=== PATIENT | male | born 1975 | race Caucasian/White ===

== ENCOUNTER 2018-09-29 20:07 | Inpatient (IN) | payer OTHER ==
[2018-09-29 21:01] LABS: Hemoglobin 14.6 gm/dl (11.8-15.2); Mean Corpuscular HGB Conc 33 % (32-34); Mean Corpuscular Hemoglobin 26 pg (28-32); Mean Corpuscular Volume 79 fl (84-94); Red Blood Count 5.54 M/mm3 (3.65-5.03); Red Cell Distribution Width 13.5 % (13.2-15.2)
[2018-09-29 21:02] LABS: Platelet Count 98 K/mm3 (140-440)
--- NOTE | 2018-09-29 21:48 | Emergency Department Report ---
ED Seizure HPI - General Chief Complaint: Seizure Stated Complaint: POSSIBE SEIZURE Time Seen by Provider: 09/29/18 20:55 Source: patient, family, EMS Mode of arrival: Stretcher Limitations: No Limitations - History of Present Illness Initial Comments: Patient is a 43-year-old male presents to emergency room with new onset seizure. Patient has no history of seizure. Patient states that he was in the kitchen cooking dinner and all of a sudden was on the floor. Family at bedside. Family witnessed event. Her patient was standing up and fell to the ground and went into seizure-like activity and hit his head on the ground. Patient had a postictal stage. Patient denies alcohol use. Patient denies drug use. Patient is answering questions appropriately. Patient states he doesn't remember having a seizure. Patient denies any chest pain or shortness of breath. Patient denies any blurry vision or headache or pain in the head. MD Complaint: seizure, loss of consciousness -: Sudden Description of Episode: loss of consciousness, tonic-clonic movement Witnessed:: Yes Trauma: Yes (hit head,. ) Seizure History: none Place: home Possible Precipitating Event: none Associated Symptoms: tongue injury. denies: chest pain, confusion, cough, diaphoresis, fever/chills, loss of appetite, malaise, rash, shortness of breath, syncope, weakness, shoulder dislocation Treatments Prior to Arrival: none - Related Data Home Medications Medication Instructions Recorded Confirmed Last Taken No Known Home Medications [No 09/30/18 09/30/18 Unknown Reported Home Medications] Allergies Allergy/AdvReac Type Severity Reaction Status Date / Time No Known Allergies Allergy Unverified 09/29/18 20:23 ED Review of Systems ROS: Stated complaint: POSSIBE SEIZURE Other details as noted in HPI Constitutional: denies: chills, fever Eyes: denies: eye pain, eye discharge, vision change ENT: denies: ear pain, throat pain Respiratory: denies: cough, shortness of breath, wheezing Cardiovascular: denies: chest pain, palpitations Endocrine: no symptoms reported Gastrointestinal: denies: abdominal pain, nausea, diarrhea Genitourinary: denies: urgency, dysuria Musculoskeletal: denies: back pain, joint swelling, arthralgia Skin: denies: rash, lesions Neurological: denies: headache, weakness, paresthesias Psychiatric: denies: anxiety, depression Hematological/Lymphatic: denies: easy bleeding, easy bruising ED Past Medical Hx - Past Medical History Previous Medical History?: No - Surgical History Past Surgical History?: Yes Additional Surgical History: Left and Right arm surgery - Family History Family history: no significant - Social History Smoking Status: Never Smoker Substance Use Type: Alcohol - Medications Home Medications: Home Medications Medication Instructions Recorded Confirmed Last Taken Type No Known Home Medications [No 09/30/18 09/30/18 Unknown History Reported Home Medications] ED Physical Exam - General Limitations: No Limitations General appearance: alert, in no apparent distress - Head Head exam: Present: atraumatic, normocephalic - Eye Eye exam: Present: normal appearance - ENT ENT exam: Present: mucous membranes moist, other ( tongue lac. bleeding controlled. site closed. ) - Neck Neck exam: Present: normal inspection - Respiratory Respiratory exam: Present: normal lung sounds bilaterally. Absent: respiratory distress - Cardiovascular Cardiovascular Exam: Present: regular rate, normal rhythm. Absent: systolic murmur, diastolic murmur, rubs, gallop - GI/Abdominal GI/Abdominal exam: Present: soft, normal bowel sounds - Rectal Rectal exam: Present: deferred - Extremities Exam Extremities exam: Present: normal inspection - Back Exam Back exam: Present: normal inspection - Neurological Exam Neurological exam: Present: alert, oriented X3 - Psychiatric Psychiatric exam: Present: normal affect, normal mood - Skin Skin exam: Present: warm, dry, intact, normal color. Absent: rash ED Course Vital Signs 09/29/18 09/29/18 09/30/18 20:35 20:37 00:51 Temperature 97.6 F Pulse Rate 122 H 102 H Respiratory 18 18 18 Rate Blood Pressure 166/101 152/96 [Right] O2 Sat by Pulse 99 Oximetry - Reevaluation(s) Reevaluation #1: Initial evaluation done. We'll order a head CT and possibly admit due to new onset seizures. 09/29/18 21:00 Discussed all results with patient. Patient to be admitted to the hospitalist service. Patient agrees with plan of care and admission. While I was explaining the patient's results, the patient had an absence seizure, where the patient stared off into space and was unresponsive. After about 30 or 40 seconds the patient returns normal 09/29/18 23:37 Discussed plan of care again with patient and family. Patient agreed to plan of care and admission. 09/30/18 00:54 - Consultations Consultation #1: Hospitalist consultation 09/30/18 00:[address] Yu. Hospitalist was consulted for admission. Hospitalist to admit patient and assume care. 09/30/18 00:53 ED Medical Decision Making - Lab Data Result diagrams: 09/29/18 20:36 09/29/18 20:36 - EKG Data -: EKG Interpreted by Me EKG shows normal: sinus rhythm, axis, intervals, QRS complexes, ST-T waves Rate: tachycardia - Radiology Data Radiology results: report reviewed FINAL REPORT EXAM: CT HEAD/BRAIN WO CON HISTORY: sz TECHNIQUE: CT was performed from the foramen magnum through the vertex in the axial plane without the use of intravenous contrast. PRIORS: None. FINDINGS: The persaud/white matter attenuation pattern is normal. There is no mass lesion or mass effect. There are no abnormal extra-axial fluid collections. There is no evidence of acute intracranial hemorrhage or infarct. The ventricles are of normal size and configuration. The skull and orbits are unremarkable. There is patchy mucosal thickening in the bilateral ethmoid air cells. IMPRESSION: Normal CT of the head. Transcribed By: KRISTINE Dictated By: PARAG STALLINGS MD Electronically Authenticated By: PARAG STALLINGS MD Signed Date/Time: 09/29/18 2309 - Medical Decision Making Patient is a 43-year-old male presents emergency room with complaints of new onset seizure. Patient does not have a history of seizures. Patient head CT is negative. Labs essentially unremarkable except for hyponatremia. Patient adm itted to the hospitalist service for further evaluation treatment. - Differential Diagnosis new-onset seizure. Seizure activity. Electrolyte imbalance. Critical Care Time: Yes Critical care attestation.: If time is entered above; I have spent that time in minutes in the direct care of this critically ill patient, excluding procedure time. Critical Care Time: 35 minutes. ED Disposition Clinical Impression: New onset seizure, Hyponatremia, Elevated CK Tongue laceration Qualifiers: Encounter type: initial encounter Qualified Code(s): S01.512A - Laceration without foreign body of oral cavity, initial encounter Disposition: 09 OP ADMIT IP TO THIS HOSP Is pt being admited?: Yes Does the pt Need Aspirin: No Condition: Critical Time of Disposition: 00:53
[2018-09-29 21:55] LABS: BUN/Creatinine Ratio 7; Blood Urea Nitrogen 8 mg/dL (9-20); Hemolysis Index 28
--- NOTE | 2018-09-29 23:09 | Cat Scan Report ---
FINAL REPORT EXAM: CT HEAD/BRAIN WO CON HISTORY: sz TECHNIQUE: CT was performed from the foramen magnum through the vertex in the axial plane without th e use of intravenous contrast. PRIORS: None. FINDINGS: The persaud/white matter attenuation pattern is normal. There is no mass lesion or mass effect. There ar e no abnormal extra-axial fluid collections. There is no evidence of acute intracranial hemorrhage or infarct. The ventricles are of normal size and configuration. The skull and orbits are unremarkable . There is patchy mucosal thickening in the bilateral ethmoid air cells. IMPRESSION: Normal CT of the head.
[2018-09-29] MEDS ORDERED: NACL 0.9% 1000 ML 1,000 ML IV ONE (23:38)
[2018-09-30 00:32] LABS: Creatine Kinase MB 2.8 ng/mL (0.0-4.0)
[2018-09-30 01:59] LABS: Bilirubin,Urine NEG (Negative); Blood,Urine SM (Negative); Color,Urine Amber (Yellow); Hyaline Casts,Urine 42 /LPF; Mucus,Urine 3+ /HPF
[2018-09-30 02:00] LABS: Protein,Urine >500 mg/dL (Negative)
[2018-09-30 02:03] LABS: Amphetamine Screen,Urine PRESUMPTIVE NEGATIVE; Benzodiazepines Screen,Urine PRESUMPTIVE NEGATIVE; Cannabinoid Screen,Urine PRESUMPTIVE NEGATIVE; Cocaine Screen,Urine PRESUMPTIVE NEGATIVE; Methadone Screen,Urine PRESUMPTIVE NEGATIVE; Opiate Screen,Urine PRESUMPTIVE NEGATIVE
[2018-09-30] MEDS ORDERED: TYLENOL PO PRN (02:04)
[2018-09-30] MEDS ORDERED: ZOFRAN IV PRN (02:04)
[2018-09-30] MEDS ORDERED: SODIUM CHLORIDE FLUSH SYRINGE 10 ML IV PRN (02:04)
[2018-09-30] MEDS ORDERED: NORCO 5/325 PO PRN (02:04)
[2018-09-30] MEDS ORDERED: ATIVAN IV PRN (02:07)
--- NOTE | 2018-09-30 02:27 | History and Physical Report ---
History of Present Illness Date of examination: 09/30/18 Date of admission: 09/30/18 Chief complaint: Seizure History of present illness: Patient is a 43-year-old -Italian male with no known past medical history who was brought to the ED via EMS on account of seizure activity. History was obtained from the patient and the girlfriend who was at the bedside. He stated that she found the patient on the kitchen floor twitching all over. After the seizure he was confused for about 10 minutes. He had associated tongue bite but no urinary or fecal incontinence. Patient stated that for the past few days, he had been vomiting with associated lightheadedness. He denies abdominal pain, constipation, diarrhea, dysuria or frequency. No chest pain, shortness of breath, palpitation, cough, sore throat, runny nose or congestion, fever, chills, leg swelling, orthopnea or PND. No prior history of presenting complaint. He denies heavy alcohol or illicit drug use. Past History Past Medical History: No medical history Past Surgical History: Other (both arm surgery) Social history: other (he admits to occasional alcohol use but denies tobacco or illicit drug use) Family history: other (no family history of epilepsy or seizure disorder) Medications and Allergies Allergies Allergy/AdvReac Type Severity Reaction Status Date / Time No Known Allergies Allergy Unverified 09/29/18 20:23 Home Medications Medication Instructions Recorded Confirmed Last Taken Type No Known Home Medications [No 09/30/18 09/30/18 Unknown History Reported Home Medications] Active Meds: Active Medications Acetaminophen (Tylenol) 650 mg PO Q4H PRN PRN Reason: Pain MILD(1-3)/Fever >100.5/MANUEL Acetaminophen/Hydrocodone Bitart ([place] 5/325) 1 each PO Q6H PRN PRN Reason: Pain, Moderate (4-6) Sodium Chloride (Nacl 0.9% 1000 Ml) 1,000 mls @ 125 mls/hr IV DIRECT CARROLL Lorazepam (Ativan) 2 mg IV Q4H PRN PRN Reason: Seizures Ondansetron HCl (Zofran) 4 mg IV Q8H PRN PRN Reason: Nausea And Vomiting Sodium Chloride (Sodium Chloride Flush Syringe 10 Ml) 10 ml IV BID CARROLL Sodium Chloride (Sodium Chloride Flush Syringe 10 Ml) 10 ml IV PRN PRN PRN Reason: LINE FLUSH Review of Systems All systems: negative (except as documented in the HPI, all other systems were reviewed and negative) Exam - Constitutional Vitals: Temp Pulse Resp BP Pulse Ox 97.6 F 102 H 18 152/96 99 09/29/18 20:37 09/30/18 00:51 09/30/18 00:51 09/30/18 00:51 09/30/18 00:51 General appearance: Present: no acute distress, obese - EENT Eyes: Present: PERRL, EOM intact ENT: hearing intact, clear oral mucosa - Neck Neck: Present: supple, normal ROM - Respiratory Respiratory effort: normal Respiratory: bilateral: CTA - Cardiovascular Rhythm: other (tachycardia with regular rhythm) Heart Sounds: Present: S1 & S2. Absent: rub, click - Extremities Extremities: pulses symmetrical, No edema Peripheral Pulses: within normal limits - Abdominal General gastrointestinal: Present: soft, non-tender, non-distended, normal bowel sounds Male genitourinary: Present: deferred - Integumentary Integumentary: Present: clear, warm, dry - Musculoskeletal Musculoskeletal: gait normal, strength equal bilaterally - Psychiatric Psychiatric: appropriate mood/affect, intact judgment & insight - Neurologic Neurologic: CNII-XII intact, moves all extremities Results - Labs CBC & Chem 7: 09/29/18 20:36 09/29/18 20:36 Labs: Laboratory Last Values WBC 5.6 K/mm3 (4.5-11.0) 09/29/18 20:36 RBC 5.54 M/mm3 (3.65-5.03) H 09/29/18 20:36 Hgb 14.6 gm/dl (11.8-15.2) 09/29/18 20:36 Hct 44.0 % (35.5-45.6) 09/29/18 20:36 MCV 79 fl (84-94) L 09/29/18 20:36 MCH 26 pg (28-32) L 09/29/18 20:36 MCHC 33 % (32-34) 09/29/18 20:36 RDW 13.5 % (13.2-15.2) 09/29/18 20:36 Plt Count 98 K/mm3 (140-440) L 09/29/18 20:36 Sodium 129 mmol/L (137-145) L 09/29/18 20:36 Potassium 3.8 mmol/L (3.6-5.0) 09/29/18 20:36 Chloride 91.4 mmol/L (98-107) L 09/29/18 20:36 Carbon Dioxide 19 mmol/L (22-30) L 09/29/18 20:36 Anion Gap 22 mmol/L 09/29/18 20:36 BUN 8 mg/dL (9-20) L 09/29/18 20:36 Creatinine 1.2 mg/dL (0.8-1.5) 09/29/18 20:36 Estimated GFR > 60 ml/min 09/29/18 20:36 BUN/Creatinine Ratio 7 % 09/29/18 20:36 Glucose 198 mg/dL (75-100) H 09/29/18 20:36 Calcium 9.0 mg/dL (8.4-10.2) 09/29/18 20:36 Total Creatine Kinase 368 units/L (55-170) H 09/29/18 Unknown CK-MB (CK-2) 2.8 ng/mL (0.0-4.0) 09/29/18 Unknown CK-MB (CK-2) Rel Index 0.7 (0-4) 09/29/18 Unknown Troponin T < 0.010 ng/mL (0.00-0.029) 09/29/18 Unknown Urine Color Kristan (Yellow) 09/30/18 01:43 Urine Turbidity Slightly-cloudy (Clear) 09/30/18 01:43 Urine pH 5.0 (5.0-7.0) 09/30/18 01:43 Ur Specific [place] 1.023 (1.003-1.030) 09/30/18 01:43 Urine Protein >500 mg/dL (Negative) 09/30/18 01:43 Urine Glucose (UA) 50 mg/dL (Negative) 09/30/18 01:43 Urine Ketones Tr mg/dL (Negative) 09/30/18 01:43 Urine Blood Sm (Negative) 09/30/18 01:43 Urine Nitrite Neg (Negative) 09/30/18 01:43 Urine Bilirubin Neg (Negative) 09/30/18 01:43 Urine Urobilinogen 4.0 mg/dL (<2.0) 09/30/18 01:43 Ur Leukocyte Esterase Neg (Negative) 09/30/18 01:43 Urine WBC (Auto) 4.0 /HPF (0.0-6.0) 09/30/18 01:43 Urine RBC (Auto) 5.0 /HPF (0.0-6.0) 09/30/18 01:43 U Epithel Cells (Auto) < 1.0 /HPF (0-13.0) 09/30/18 01:43 Hyaline Casts 42 /LPF 09/30/18 01:43 Urine Mucus 3+ /HPF 09/30/18 01:43 Urine Opiates Screen Presumptive negative 09/30/18 01:43 Urine Methadone Screen Presumptive negative 09/30/18 01:43 Ur Barbiturates Screen Presumptive negative 09/30/18 01:43 Ur Phencyclidine Scrn Presumptive negative 09/30/18 01:43 Ur Amphetamines Screen Presumptive negative 09/30/18 01:43 U Benzodiazepines Scrn Presumptive negative 09/30/18 01:43 Urine Cocaine Screen Presumptive negative 09/30/18 01:43 U Marijuana (THC) Screen Presumptive negative 09/30/18 01:43 Drugs of Abuse Note Disclamer 09/30/18 01:43 Assessment and Plan Assessment and plan: New onset seizure -Probably secondary to the hyponatremia -Seizure precautions -Head CT scan negative, drug screen negative -We'll check magnesium and phosphorus levels Hyponatremia -On IV fluid, will monitor sodium level Hyperglycemia -We'll check hemoglobin A1c level Metabolic acidosis -We'll hydrate patient and monitor bicarbonate level Elevated BP without prior diagnosis of hypertension -When necessary hydralazine DVT prophylaxis with SCD Disposition: Patient will be placed in inpatient status with plan for discharge in 2-3 days is clinically stable
[2018-09-30 03:01] LABS: Alanine Aminotransferase 29 units/L (7-56); Albumin 3.8 g/dL (3.9-5); BUN/Creatinine Ratio 8; Blood Urea Nitrogen 7 mg/dL (9-20); Calcium 8.7 mg/dL (8.4-10.2); Hemolysis Index 3
[2018-09-30 04:42] LABS: Chol/HDL Ratio 3.82 %
[2018-09-30] MEDS: NACL 0.9% 1000 ML 1,000 ML IV SCH ×2 (04:47→23:24)
[2018-09-30] MEDS ORDERED: K-DUR PO ONE (05:15)
--- NOTE | 2018-09-30 11:22 | Event Note ---
Date: 09/30/18 Patient seen and examined medical records reviewed Admitted this morning with new onset seizures hypokalemia hypophosphatemia On seizure precautions , consult neurology Patient is advised not to drive for 6 months Patient feels better now with complaints Denies headache or dizziness Vital signs noted physical examination unremarkable Assessment and plan; --New onset seizure; Probably due to hyponatremia Seizure precautions, neurology consult Do not drive for [address] scan negative, drug screen negative --Hypokalemia replace per protocol; --Hyponatremia; mild improvement Continue IV fluid, will monitor sodium level --Hypophosphatemia; Neutra-Phos, closely monitor --Hyperglycemia We'll check hemoglobin A1c level, Accu-Chek sliding scale coverage --Metabolic acidosis Mild improvement , continue IV fluids --Hypertension; moderate control When necessary hydralazine DVT prophylaxis with SCD Disposition: Follow neuro consult, EEG Plan of care reviewed with the patient and his
--- NOTE | 2018-09-30 16:26 | Electroencephalogram Report ---
Electroencephalogram EEG Date of exam: 09/30/18 History: Single first GTC seizure preceded by brief lightheadedness, with tongue biting but no incontinence. Phosphate was 2(mildly low) with sodium 128 (mildly low). Description: EEG preliminary findings: This 23 channel digital EEG is performed with the 10/20 international montage in this 21 minute recording. One channel represents EKG showing tachycardia. There is 9 Hz alpha activity in the posterior leads and some anterior beta activity. There is shifting slowing with drowsiness but no sleep is recorded. No epileptiform activity was seen. Interpretation: EEG preliminary reading: normal wake/drowsy EEG except for tachycardia. This EEG does not exclude epilepsy of partial onset. Up to 4 EEGs over several months may be needed to capture interictal epileptiform activity.
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
[2018-09-30] MEDS: SODIUM CHLORIDE FLUSH SYRINGE 10 ML IV SCH ×2 (17:25→22:40)
[2018-09-30 17:50] LABS: BUN/Creatinine Ratio 7; Blood Urea Nitrogen 6 mg/dL (9-20); Calcium 8.2 mg/dL (8.4-10.2); Hemolysis Index 21
[2018-10-01 06:19] LABS: BUN/Creatinine Ratio 7; Blood Urea Nitrogen 5 mg/dL (9-20); Calcium 8.6 mg/dL (8.4-10.2); Hemolysis Index 11
[2018-10-01] MEDS: NACL 0.9% 1000 ML 1,000 ML IV SCH (07:05)
[2018-10-01] MEDS ORDERED: APRESOLINE IV ONE (12:04)
[2018-10-01] MEDS ORDERED: K-DUR PO ONE (13:12)
[2018-10-01] MEDS ORDERED: APRESOLINE PO SCH (14:00)
[2018-10-01] MEDS: APRESOLINE IV PRN ×2 (17:33→23:48)
--- NOTE | 2018-10-01 19:24 | Progress Note ---
Assessment and Plan Assessment and plan: Assessment and plan; --Malignant hypertension; continue current antihypertensives When necessary medications --New onset seizure; no new episodes since admission Probably due to hyponatremia Seizure precautions, neurology evaluated the patient No indication for anti-epileptics at this point Do not drive for 6 months, EEG negative Head CT scan negative, drug screen negative Patient will follow up with outpatient neurologist for further evaluation --Hypokalemia; corrected --Hyponatremia; mild improvement Continue IV fluid, will monitor sodium level --Hypophosphatemia; Neutra-Phos, closely monitor --Hyperglycemia We'll check hemoglobin A1c level, Accu-Chek sliding scale coverage --Metabolic acidosis Mild improvement , continue IV fluids --Hypertension; moderate control When necessary hydralazine DVT prophylaxis with SCD Disposition: Follow neuro consult, EEG Plan of care reviewed with the patient and his History Interval history: Patient seen and examined medical records reviewed No new events reported by the nursing New seizure episodes Hospitalist Physical - Constitutional Vitals: Temp Pulse Resp BP Pulse Ox 99.6 F 105 H 20 176/112 95 10/01/18 17:20 10/01/18 05:02 10/01/18 17:20 10/01/18 17:20 10/01/18 05:02 General appearance: Present: no acute distress, well-nourished, obese - EENT Eyes: Present: PERRL, EOM intact - Neck Neck: Present: supple, normal ROM - Respiratory Respiratory effort: normal Respiratory: bilateral: diminished, negative: rales, rhonchi, wheezing - Cardiovascular Rhythm: regular Heart Sounds: Present: S1 & S2 - Extremities Extremities: no ischemia, No edema - Abdominal General gastrointestinal: soft, non-tender, non-distended, normal bowel sounds - Integumentary Integumentary: Present: clear, warm - Psychiatric Psychiatric: appropriate mood/affect, cooperative - Neurologic Neurologic: CNII-XII intact, moves all extremities Results - Labs CBC & Chem 7: 09/29/18 20:36 10/01/18 05:34 Labs: Laboratory Last Values WBC 5.6 K/mm3 (4.5-11.0) 09/29/18 20:36 RBC 5.54 M/mm3 (3.65-5.03) H 09/29/18 20:36 Hgb 14.6 gm/dl (11.8-15.2) 09/29/18 20:36 Hct 44.0 % (35.5-45.6) 09/29/18 20:36 MCV 79 fl (84-94) L 09/29/18 20:36 MCH 26 pg (28-32) L 09/29/18 20:36 MCHC 33 % (32-34) 09/29/18 20:36 RDW 13.5 % (13.2-15.2) 09/29/18 20:36 Plt Count 98 K/mm3 (140-440) L 09/29/18 20:36 Sodium 135 mmol/L (137-145) L 10/01/18 05:34 Potassium 3.4 mmol/L (3.6-5.0) L 10/01/18 05:34 Chloride 99.4 mmol/L (98-107) 10/01/18 05:34 Carbon Dioxide 22 mmol/L (22-30) 10/01/18 05:34 Anion Gap 17 mmol/L 10/01/18 05:34 BUN 5 mg/dL (9-20) L 10/01/18 05:34 Creatinine 0.7 mg/dL (0.8-1.5) L 10/01/18 05:34 Estimated GFR > 60 ml/min 10/01/18 05:34 BUN/Creatinine Ratio 7 % 10/01/18 05:34 Glucose 166 mg/dL (75-100) H 10/01/18 05:34 POC Glucose 109 (70-105) H 10/01/18 17:25 Hemoglobin A1c 6.4 % (4-6) H 09/30/18 02:20 Calcium 8.6 mg/dL (8.4-10.2) 10/01/18 05:34 Phosphorus 1.70 mg/dL (2.5-4.5) L 10/01/18 05:34 Magnesium 2.10 mg/dL (1.7-2.3) 10/01/18 05:34 Total Bilirubin 1.80 mg/dL (0.1-1.2) H 09/30/18 02:20 AST 111 units/L (5-40) H 09/30/18 02:20 ALT 29 units/L (7-56) 09/30/18 02:20 Alkaline Phosphatase 85 units/L (35-129) 09/30/18 02:20 Total Creatine Kinase 368 units/L (55-170) H 09/29/18 Unknown CK-MB (CK-2) 2.8 ng/mL (0.0-4.0) 09/29/18 Unknown CK-MB (CK-2) Rel Index 0.7 (0-4) 09/29/18 Unknown Troponin T < 0.010 ng/mL (0.00-0.029) 09/29/18 Unknown Total Protein 8.2 g/dL (6.3-8.2) 09/30/18 02:20 Albumin 3.8 g/dL (3.9-5) L 09/30/18 02:20 Albumin/Globulin Ratio 0.9 % 09/30/18 02:20 Triglycerides 344 mg/dL (2-149) H 09/30/18 02:20 Cholesterol 199 mg/dL (50-199) 09/30/18 02:20 LDL Cholesterol Direct 108 mg/dL (50-130) 09/30/18 02:20 HDL Cholesterol 52 mg/dL (40-59) 09/30/18 02:20 Cholesterol/HDL Ratio 3.82 % 09/30/18 02:20 Urine Color Kristan (Yellow) 09/30/18 01:43 Urine Turbidity Slightly-cloudy (Clear) 09/30/18 01:43 Urine pH 5.0 (5.0-7.0) 09/30/18 01:43 Ur Specific Morton 1.023 (1.003-1.030) 09/30/18 01:43 Urine Protein >500 mg/dL (Negative) 09/30/18 01:43 Urine Glucose (UA) 50 mg/dL (Negative) 09/30/18 01:43 Urine Ketones Tr mg/dL (Negative) 09/30/18 01:43 Urine Blood Sm (Negative) 09/30/18 01:43 Urine Nitrite Neg (Negative) 09/30/18 01:43 Urine Bilirubin Neg (Negative) 09/30/18 01:43 Urine Urobilinogen 4.0 mg/dL (<2.0) 09/30/18 01:43 Ur Leukocyte Esterase Neg (Negative) 09/30/18 01:43 Urine WBC (Auto) 4.0 /HPF (0.0-6.0) 09/30/18 01:43 Urine RBC (Auto) 5.0 /HPF (0.0-6.0) 09/30/18 01:43 U Epithel Cells (Auto) < 1.0 /HPF (0-13.0) 09/30/18 01:43 Hyaline Casts 42 /LPF 09/30/18 01:43 Urine Mucus 3+ /HPF 09/30/18 01:43 Urine Opiates Screen Presumptive negative 09/30/18 01:43 Urine Methadone Screen Presumptive negative 09/30/18 01:43 Ur Barbiturates Screen Presumptive negative 09/30/18 01:43 Ur Phencyclidine Scrn Presumptive negative 09/30/18 01:43 Ur Amphetamines Screen Presumptive negative 09/30/18 01:43 U Benzodiazepines Scrn Presumptive negative 09/30/18 01:43 Urine Cocaine Screen Presumptive negative 09/30/18 01:43 U Marijuana (THC) Screen Presumptive negative 09/30/18 01:43 Drugs of Abuse Note Disclamer 09/30/18 01:43
[2018-10-01] MEDS: PHOS-NAK PO SCH (21:28)
[2018-10-01] MEDS: XANAX PO SCH (21:28)
[2018-10-01] MEDS: SODIUM CHLORIDE FLUSH SYRINGE 10 ML IV SCH ×2 (21:29→21:32)
[2018-10-01] MEDS: APRESOLINE PO SCH (21:29)
[2018-10-02] MEDS: XANAX PO SCH ×3 (03:47→21:21)
[2018-10-02] MEDS: APRESOLINE IV PRN ×2 (03:51→12:13)
[2018-10-02] MEDS: PHOS-NAK PO SCH ×3 (05:49→22:42)
[2018-10-02] MEDS: APRESOLINE PO SCH ×3 (05:49→22:42)
[2018-10-02] MEDS: SODIUM CHLORIDE FLUSH SYRINGE 10 ML IV SCH ×2 (12:14→22:45)
[2018-10-02] MEDS ORDERED: LOPRESSOR PO ONE (16:00)
[2018-10-02] MEDS ORDERED: LOPRESSOR PO SCH (22:00)
[2018-10-02] MEDS: LOPRESSOR PO SCH (22:43)
[2018-10-03] MEDS: XANAX PO SCH (04:18)
[2018-10-03 05:21] LABS: BUN/Creatinine Ratio 9; Blood Urea Nitrogen 6 mg/dL (9-20); Calcium 9.2 mg/dL (8.4-10.2); Hemolysis Index 3
[2018-10-03 05:26] LABS: Free T4 (Free Thyroxine) 1.23 ng/dL (0.76-1.46)
[2018-10-03] MEDS: APRESOLINE PO SCH ×2 (06:08→14:00)
[2018-10-03] MEDS: PHOS-NAK PO SCH ×2 (06:10→14:00)
[2018-10-03] MEDS ORDERED: XANAX PO PRN (06:43)
[2018-10-03] MEDS ORDERED: K-DUR PO ONE (06:44)
[2018-10-03] MEDS ORDERED: LOVENOX SUB-Q SCH (10:00)
[2018-10-03] MEDS: LOPRESSOR PO SCH (10:15)
[2018-10-03] MEDS: SODIUM CHLORIDE FLUSH SYRINGE 10 ML IV SCH (10:16)
[2018-10-03 14:45] VITALS: BP 134/87
--- NOTE | 2018-10-03 14:51 | Discharge Summary ---
Providers - Providers Date of Admission: 09/30/18 02:04 Date of discharge: 10/03/18 Attending physician: MARK CANCHOLA 09/30/18 11:11 Consult to Physician [CONS] Routine Comment: Consulting Provider: NAOMIE RHOADES Physician Instructions: Reason For Exam: Seizures Primary care physician: [employer] Hospitalization Reason for admission: seizure episode Condition: Stable Hospital course: --Malignant hypertension; improved --New onset seizure; no new episodes since admission Probably due to hyponatremia Seizure precautions, neurology evaluated the patient No indication for anti-epileptics at this point Do not drive for 6 months, EEG negative Head CT scan negative, drug screen negative Patient will follow up with outpatient neurologist for further evaluation --Hypokalemia; corrected --Hyponatremia; mild improvement Continue IV fluid, will monitor sodium level --Hypophosphatemia; Neutra-Phos, closely monitor --Hyperglycemia We'll check hemoglobin A1c level, Accu-Chek sliding scale coverage --Metabolic acidosis Mild improvement , continue IV fluids --Hypertension; moderate control When necessary hydralazine Disposition: DC-01 TO HOME OR SELFCARE Time spent for discharge: 32 min Core Measure Documentation - Palliative Care Palliative Care/ Comfort Measures: Not Applicable - Core Measures Any of the following diagnoses?: none Exam - Constitutional Vitals: Temp Pulse Resp BP Pulse Ox 98.4 F 120 H 22 134/87 95 10/03/18 11:48 10/03/18 14:43 10/03/18 11:48 10/03/18 14:43 10/03/18 14:43 Plan Activity: no driving until cleared by PCP (do not drive for 6 months/check with primary care physician), other (seizure precautions) Diet: low salt Additional Instructions: Do not drive for 6 months/or until cleared by primary care physician/neurologist. Follow-up outpatient neurologist/outpatient MRI as per private neurologist. follow [facility] Follow up with: DEJUAN MCGRATH MD [Primary Care Provider] - 7 Days VINNY CORONA MD [Staff Physician] - 7 Days Prescriptions: ALPRAZolam [Xanax TAB] 0.25 mg PO QHS PRN #7 tablet PRN Reason: Anxiety hydrALAZINE [Apresoline TAB] 50 mg PO Q8HR #90 tablet Metoprolol [Lopressor TAB] 25 mg PO BID #60 tablet
== END 2018-10-03 15:40 | disposition home or self-care (01) | DRG 641 ==
LOC: ED 20:07 → 4A 09-30 02:04 → 3A 09-30 21:42
PROVIDERS: ADMIT Internal Medicine; ATTEND Internal Medicine
DX: E87.1 Hypo-osmolality and hyponatremia (principal); R56.9 Unspecified convulsions; E87.2 Acidosis; I10 Essential (primary) hypertension; W18.39XA Other fall on same level, initial encounter; Y93.89 Activity, other specified; Y92.89 Other specified places as the place of occurrence of the external cause; Y99.8 Other external cause status; S01.512A Laceration without foreign body of oral cavity, initial encounter; R73.9 Hyperglycemia, unspecified; E87.6 Hypokalemia; E83.39 Other disorders of phosphorus metabolism
CPT/HCPCS: 36415; 70450; 80048; 80053; 80061; 80307; 81001; 82550; 82553; 82962; 83036; 83735; 84100; 84439; 84443; 84484; 85027; 87040; 93005; 93010; 95819; 96374; 96375; 99291; G0378; J0360; J1650; J2060; J2405; J7030